=== PATIENT | male | born 1985 | race Caucasian/White ===

== ENCOUNTER 2017-07-23 20:01 | Inpatient (IN) | payer MEDICAID, OTHER ==
[~2017-07-23] VITALS: Ht 177.8 cm; Wt 68.2 kg
[2017-07-23 20:44] VITALS: BP 125/82; PULSE 73; RESP 16; TEMP 97.4; O2SAT 98
[2017-07-23 23:21] VITALS: BP 131/85; PULSE 70; RESP 18; O2SAT 100
[2017-07-23] MEDS ORDERED: SERO200T PO (23:30)
[2017-07-23] MEDS ORDERED: VENL75TA2 PO (23:30)
[2017-07-23] MEDS ORDERED: SERO300T PO (23:30)
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
[2017-07-23] MEDS ORDERED: DIPHTH/TETANUS/ACEL PERTUSSIS (BOOSTER) 0.5 ML VIAL/PFS IM ONE (23:45)
[2017-07-23] MEDS ORDERED: SILVER SULFADIAZINE 1% CR 400 GM JAR TOPICAL ONE (23:45)
[2017-07-24 00:33] LABS: BASOPHIL # 0.1 TH/MM3 (0-0.2); BASOPHIL % 0.6 % (0.0-2.0); EOSINOPHIL # 0.7 TH/MM3 (0-0.4); EOSINOPHIL % 6.8 % (0.0-4.0); HEMO FLAGS DIFF FINAL; LYMPH % 35.8 % (9.0-44.0); LYMPHOCYTE # 3.6 TH/MM3 (1.0-4.8); MEAN CELL VOLUME 94.9 FL (80.0-100.0); MEAN CORPUSCULAR HEMOGLOBIN 32.4 PG (27.0-34.0); MEAN CORPUSCULAR HGB CONC 34.2 % (32.0-36.0); MONO % 7.2 % (0.0-8.0); NEUT % 49.6 % (16.0-70.0); PLATELET COUNT 324 TH/MM3 (150-450); RED BLOOD COUNT 4.33 MIL/MM3 (4.50-5.90); RED CELL DISTRIBUTION WIDTH 13.3 % (11.6-17.2); WHITE BLOOD COUNT 10.1 TH/MM3 (4.0-11.0)
[2017-07-24 00:49] LABS: ANION GAP 7 MEQ/L (5-15); AST (GOT) 11 U/L (15-37); BICARBONATE 29.1 MEQ/L (21.0-32.0); BLOOD UREA NITROGEN 11 MG/DL (7-18); CHLORIDE 105 MEQ/L (98-107); GLOMERULAR FILTRATION RATE 98 ML/MIN (>89); POTASSIUM 3.4 MEQ/L (3.5-5.1); SODIUM (NA) 141 MEQ/L (136-145)
[2017-07-24 01:00] LABS: ACETAMINOPHEN LESS THAN 2.0 MCG/ML (10.0-30.0); ALKALINE PHOSPHATASE 107 U/L (45-117); ALT (GPT) 19 U/L (12-78); TOTAL BILIRUBIN ADULT 0.2 MG/DL (0.2-1.0)
[2017-07-24 01:09] LABS: ALCOHOL LESS THAN 3 MG/DL (0-5)
[2017-07-24] MEDS ORDERED: POTASSIUM CHLORIDE 20 MEQ CONTROLLED RELEASE TAB PO ONE (01:45)
[2017-07-24 04:10] VITALS: BP 104/58; PULSE 82; RESP 16; TEMP 98.2; O2SAT 95
[2017-07-24 10:27] VITALS: BP 134/84; PULSE 77; RESP 16; O2SAT 97
[2017-07-24 11:30] VITALS: BP 109/69; PULSE 66; RESP 16; TEMP 98.2
[2017-07-24 14:59] VITALS: BP 129/67; PULSE 75; RESP 18; O2SAT 98
[2017-07-24 18:46] VITALS: BP 140/86; PULSE 76; RESP 18; O2SAT 99
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
[2017-07-24] MEDS ORDERED: ALUMINUM/MAGNESIUM/SIMETH 30 ML CUP PO PRN (20:45)
[2017-07-24] MEDS ORDERED: MAGNESIUM HYDROXIDE SUSP 30 ML CUP PO PRN (20:45)
[2017-07-24] MEDS ORDERED: ACETAMINOPHEN 325 MG TAB PO PRN (20:45)
[2017-07-24] MEDS: REMOVE OLD PATCH T-DERMAL SCH (21:00)
[2017-07-24] MEDS: QUEtiapine FUMARATE 300 MG TAB PO SCH (21:59)
[2017-07-25 05:34] VITALS: BP 101/65; PULSE 72; RESP 16; TEMP 97.9; O2SAT 96
[2017-07-25] MEDS: VENLAFAXINE HCL XR 75 MG CAP PO SCH (09:01)
[2017-07-25] MEDS: NICOTINE 21 MG/24 HR PATCH T-DERMAL SCH (09:02)
[2017-07-25 11:06] LABS: ANION GAP 6 MEQ/L (5-15); BICARBONATE 28.8 MEQ/L (21.0-32.0); BLOOD UREA NITROGEN 12 MG/DL (7-18); CHLORIDE 106 MEQ/L (98-107); GLOMERULAR FILTRATION RATE 95 ML/MIN (>89); POTASSIUM 4.1 MEQ/L (3.5-5.1); SODIUM (NA) 141 MEQ/L (136-145)
[2017-07-25 11:17] LABS: HDL CHOLESTEROL 27.3 MG/DL (40.0-60.0); LDL CHOLESTEROL 102 MG/DL (0-99)
[2017-07-25] MEDS ORDERED: ACETAMINOPHEN 325 MG TAB PO PRN (11:45)
[2017-07-25] MEDS ORDERED: hydrOXYzine HCL 50 MG TAB PO PRN (12:00)
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
[2017-07-25] MEDS ORDERED: VENL75XR PO (12:34)
[2017-07-25] MEDS ORDERED: QUET1TAB10 PO (12:34)
[2017-07-25] MEDS ORDERED: QUET1TAB9 PO (12:34)
--- NOTE | 2017-07-25 14:41 | EKG ---
Date Performed: 07/25/2017 Time Performed: 07:53:49 PTAGE: 32 years EKG: Sinus rhythm WITH SINUS ARRHYTHMIA NORMAL ECG NO PREVIOUS TRACING DOCTOR: Jorge Braden Interpretating Date/Time 07/25/2017 14:36:57
[2017-07-25 16:57] LABS: HEMOGLOBIN A1a 0.9 %; HEMOGLOBIN A1b 0.8 %; HEMOGLOBIN Ao 86.5 %; HEMOGLOBIN LA1C 1.8 %; HEMOGLOBIN P3 3.4 %
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
[2017-07-25 18:20] VITALS: BP 113/68; PULSE 88; RESP 18; TEMP 97.6; O2SAT 98
[2017-07-25 20:26] VITALS: BP 101/65; PULSE 72; RESP 16; TEMP 97.9; O2SAT 96
[2017-07-25] MEDS: QUEtiapine FUMARATE 300 MG TAB PO SCH (20:40)
[2017-07-25] MEDS: REMOVE OLD PATCH T-DERMAL SCH (20:41)
[2017-07-25] MEDS ORDERED: diphenhydrAMINE HCL 50 MG CAP PO PRN (21:00)
[2017-07-26 05:58] VITALS: BP 115/72; PULSE 65; RESP 16; TEMP 97.8; O2SAT 98
[2017-07-26] MEDS: QUEtiapine FUMARATE 200 MG TAB PO SCH (08:21)
[2017-07-26] MEDS: VENLAFAXINE HCL XR 75 MG CAP PO SCH (08:21)
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
[2017-07-26] MEDS: NICOTINE 21 MG/24 HR PATCH T-DERMAL SCH (08:31)
[2017-07-26] MEDS ORDERED: NICOTINE 21 MG/24 HR PATCH T-DERMAL SCH (09:00)
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
[2017-07-26 18:08] VITALS: BP 121/78; PULSE 100; RESP 17; TEMP 97.4; O2SAT 98
[2017-07-26] MEDS: REMOVE OLD PATCH T-DERMAL SCH (21:00)
[2017-07-26] MEDS: QUEtiapine FUMARATE 300 MG TAB PO SCH (21:11)
[2017-07-27 06:04] VITALS: BP 108/56; PULSE 80; RESP 18; TEMP 97.9; O2SAT 95
[2017-07-27] MEDS: NICOTINE 21 MG/24 HR PATCH T-DERMAL SCH (09:37)
[2017-07-27] MEDS: QUEtiapine FUMARATE 200 MG TAB PO SCH (09:38)
[2017-07-27] MEDS: VENLAFAXINE HCL XR 75 MG CAP PO SCH (09:41)
--- NOTE | 2017-07-27 14:16 | HHI.PYPN ---
Subjective Remarks Pt seen and discussed with staff. He has been writing disorganized rants "If god let a man that is not attracted to a man be sexual with a man then he is a piece of shit.God licks my balls and sucks my ashley". He is compliant with medications and denies medications side effects. NO aggression. Chief Complaint: admitted forthreatening auditory hallucinations self- mutilation Mental Status Examination Appearance: Appropriate Consciousness: Alert Orientation: x4 Motor Activity: Normal gait Speech: Unremarkable Language: Adequate Fund of Knowledge: Adequate Attention and Concentration: Adequate Memory: Unremarkable Mood: Appropriate Affect: Appropriate Thought Process & Associations: Intact, Disorganized (mild), Other Thought Content: Bizarre thinking Hallucination Type: Auditory Delusion Type: None Suicidal Ideation: No Suicidal Plan: No Suicidal Intention: No Homicidal Ideation: No Homicidal Plan: No Homicidal Intention: No Insight: Poor Judgment: Poor Results Labs Test 07/27/17 08:05 Erythrocyte Sedimentation Rate 7 mm/hr C-Reactive Protein 0.66 MG/DL Vitamin B12 Level 224 PG/ML Vitals/IOs Vital Signs Date Time Temp Pulse Resp B/P (MAP) Pulse Ox O2 Delivery O2 Flow Rate FiO2 07/27/17 06:04 97.9 80 18 108/56 (73) 95 07/24/17 18:46 Room Air Assessment & Plan Problem List: (1) Schizoaffective disorder ICD Codes: F25.9 - Schizoaffective disorder, unspecified Status: Acute Assessment & Plan continue current tx planEstimated LOS: days Justification for Cont. Inpt. impairments in reality testing Problem Qualifiers (1) Schizoaffective disorder: Qualified Codes: F25.0 - Schizoaffective disorder, bipolar type Anna Collado MD Jul 27, 2017 14:16
[2017-07-27 18:09] VITALS: BP 116/58; PULSE 107; RESP 18; TEMP 97.7; O2SAT 98
[2017-07-27] MEDS: REMOVE OLD PATCH T-DERMAL SCH (21:00)
[2017-07-27] MEDS: QUEtiapine FUMARATE 300 MG TAB PO SCH (22:24)
--- NOTE | 2017-07-27 22:48 | MG ---
cc: ANAND VILLARREAL MD Lab No: [id number] Date: 07/27/17 Age: 41 Sex: M Race: 1985 A 32-year-old, hallucinations, of previous potential seizures. Posterior rhythm demonstrates well-formed alpha activity 8-10 Hz 20-40 microvolts, low amplitude beta in the frontal channels. Good anterior-posterior gradient. Good EEG variability reactivity. Movement artifact occurring and blinking. Hyperventilation performed with good buildup. Single lead EKG showing sinus rhythm. INTERPRETATION Essentially normal awake EEG without the presence of any epileptic activity. Clinical correlation. MD DANIEL Villegas/ /9:47 PM /10:40 PM
[2017-07-28 05:30] VITALS: BP 90/55; PULSE 72; RESP 16; TEMP 97.9; O2SAT 96
[2017-07-28] MEDS: QUEtiapine FUMARATE 200 MG TAB PO SCH (08:52)
[2017-07-28] MEDS: VENLAFAXINE HCL XR 75 MG CAP PO SCH (08:52)
[2017-07-28] MEDS: NICOTINE 21 MG/24 HR PATCH T-DERMAL SCH (08:53)
--- NOTE | 2017-07-28 12:29 | RADRPT ---
EXAM DATE/TIME: 07/28/2017 11:43 [facility] COMPARISON: No previous studies available for comparison. INDICATIONS : Seizures. MEDICAL HISTORY : Seizures. SURGICAL HISTORY : Orthopedic. ENCOUNTER: Initial ACUITY: 1 day PAIN SCORE: 0/10 LOCATION: cranial TECHNIQUE: Multiplanar, multisequence MRI of the brain was performed without contrast. FINDINGS: CEREBRUM: The ventricles are normal for age. No evidence of midline shift, mass lesion, hemorrhage or acute in farction. No extraaxial fluid collections are seen. The pituitary gland and suprasellar cistern are normal in configuration. The hippocampal gyri appear symmetric in size and signal intensity bilatera lly. WHITE MATTER: No significant signal abnormalities are seen in the white matter. POSTERIOR FOSSA: The cerebellum and brainstem are intact. The 4th ventricle is midline. The cerebellopontine angle is unremarkable. The cerebellar tonsils are normal in position. DIFFUSION IMAGING: No focal areas of restricted diffusion are seen. No evidence of acute infarction. EXTRACRANIAL: The visualized portions of the orbits are intact. There is extensive mucoperiosteal thickening involv ing the right maxillary sinus suggesting right maxillary sinusitis. CONCLUSION: 1. No acute intracranial abnormality. 2. Right maxillary sinusitis. Gabino Murdock MD on July 28, 2017 at 12:25 Board Certified Radiologist. This report was verified electronically.
--- NOTE | 2017-07-28 13:54 | HHI.PYPN ---
Subjective Remarks Pt seen and discussed with staff. Pt refused breakfast today because "of the people" and could not elaborate beyond that. He did eat lunch. He remains disorganized and paranoid.He continues to respond to internal stimuli and was observed by RN having animated conversations with unseen entities. No aggression or behavioral problems on unit. He has come out his room more today. He is compliant iw medications and denies SI/HI Chief Complaint: admitted due to threatening auditory hallucinations self- mutilation Mental Status Examination Appearance: Appropriate Consciousness: Alert Orientation: x4 Motor Activity: Normal gait Speech: Unremarkable Language: Adequate Fund of Knowledge: Adequate Attention and Concentration: Adequate Memory: Unremarkable Mood: Appropriate Affect: Appropriate Thought Process & Associations: Intact, Disorganized (mild), Other Thought Content: Bizarre thinking Hallucination Type: Auditory Delusion Type: None Suicidal Ideation: No Suicidal Plan: No Suicidal Intention: No Homicidal Ideation: No Homicidal Plan: No Homicidal Intention: No Insight: Poor Judgment: Poor Results Vitals/IOs Vital Signs Date Time Temp Pulse Resp B/P (MAP) Pulse Ox O2 Delivery O2 Flow Rate FiO2 07/28/17 05:30 97.9 72 16 90/55 (67) 96 07/24/17 18:46 Room Air Assessment & Plan Problem List: (1) Schizoaffective disorder ICD Codes: F25.9 - Schizoaffective disorder, unspecified Status: Acute Assessment & Plan Continue current tx plan., Estimated LOS: days Justification for Cont. Inpt. impairments in reality testing Problem Qualifiers (1) Schizoaffective disorder: Qualified Codes: F25.0 - Schizoaffective disorder, bipolar type Anna Collado MD Jul 28, 2017 13:54
--- NOTE | 2017-07-28 15:25 | HHI.PR ---
Review/Management Diagnosis/Plan: (1) Seizure cerebral ICD Codes: I67.89 - Other cerebrovascular disease Status: Chronic Plan: limited hx from the pt his eeg from 2011 was quite abnormal and suggestive of a lower tendency for sz recs eeg- no sz activity, looked nml mr brain- edwin nml; denies symptoms of sinusitis. no nasal congestion/discharge/ fever or maxillary tenderness no further recs (2) Schizoaffective disorder ICD Codes: F25.9 - Schizoaffective disorder, unspecified Status: Acute (3) Auditory hallucinations ICD Codes: R44.0 - Auditory hallucinations Status: Acute Subjective Subjective Comments No acute events reported No headache No chest pain No dyspnea Active Medications Current Medications Medications (Trade) Dose Ordered Sig/Mikhail Route Start Time Stop Time Status Last Admin (Tylenol) 650 mg Q4H PRN PO 07/24/17 20:45 (Milk Of Magnesia Liq) 30 ml DAILY PRN PO 07/24/17 20:45 (Mag-Al Plus Susp Liq) 30 ml Q6H PRN PO 07/24/17 20:45 (Habitrol 21 Mg Patch.24 Hr) 1 patch DAILY T-DERMAL 07/25/17 09:00 07/28/17 08:53 Miscellaneous Information 1 HS T-DERMAL 07/24/17 21:00 07/27/17 21:00 (SEROquel) 300 mg HS PO 07/24/17 21:00 07/27/17 22:24 (Effexor Xr) 75 mg DAILY PO 07/25/17 09:00 07/28/17 08:52 (Benadryl) 50 mg HS PRN PO 07/25/17 21:00 (Atarax) 50 mg Q6HR PRN PO 07/25/17 12:00 (SEROquel) 200 mg DAILY PO 07/26/17 09:00 07/28/17 08:52 Allergies Allergies Coded Allergies Penicillins (Verified Allergy, Unknown, 07/23/17) Review of Systems All other ROS: ROS reviewed as documented in chart Exam I&O / VS Vital Signs Date Time Temp Pulse Resp B/P (MAP) Pulse Ox O2 Delivery O2 Flow Rate FiO2 07/28/17 05:30 97.9 72 16 90/55 (67) 96 07/27/17 18:09 97.7 107 18 116/58 (77) 98 General: Alert and Oriented, No acute distress Eye: EOMI Respiratory: Non-labored respirations Neurologic: Alert, Oriented, Normal sensory, Normal motor, No focal defects, CN II-XII intact Psychiatric: Cooperative, Appropriate mood & affect Exam Comments ox 3, calm, better eye contact, was coloring pictures, follows, pres Trump, rest non-focal Problem Qualifiers (1) Schizoaffective disorder: Qualified Codes: F25.0 - Schizoaffective disorder, bipolar type Hayden Pelayo MD Jul 28, 2017 15:25
[2017-07-28 16:42] VITALS: BP 124/71; PULSE 89; RESP 18; TEMP 98.3; O2SAT 99
[2017-07-28] MEDS: REMOVE OLD PATCH T-DERMAL SCH (20:50)
[2017-07-28] MEDS: QUEtiapine FUMARATE 300 MG TAB PO SCH (20:50)
[2017-07-29 06:27] VITALS: BP 98/60; PULSE 85; RESP 18; TEMP 97.7; O2SAT 97
[2017-07-29] MEDS: VENLAFAXINE HCL XR 75 MG CAP PO SCH (08:40)
[2017-07-29] MEDS: QUEtiapine FUMARATE 200 MG TAB PO SCH (08:40)
[2017-07-29] MEDS: NICOTINE 21 MG/24 HR PATCH T-DERMAL SCH (08:41)
--- NOTE | 2017-07-29 10:51 | HHI.PYPN ---
Subjective Remarks Patient seen in his room with nurse Gigi and medical student kasia , chart review patient compliant medication. Staff states she is somewhat more irritable recently with his hoarding of papers. Was somewhat irritated that his wastebasket was emptied. He remains diffusely confused. Continues to focus on his with ship with the [employer] Chief Complaint: admitted due to threatening auditory hallucinations self- mutilation Review of Systems Except as stated in HPI: all other systems reviewed are Neg Mental Status Examination Appearance: Appropriate Consciousness: Alert Orientation: x4 Motor Activity: Normal gait Speech: Unremarkable Language: Adequate Fund of Knowledge: Adequate Attention and Concentration: Adequate Memory: Unremarkable Mood: Appropriate Affect: Appropriate Thought Process & Associations: Intact, Disorganized (mild), Other Thought Content: Bizarre thinking Hallucination Type: Auditory Delusion Type: None Suicidal Ideation: No Suicidal Plan: No Suicidal Intention: No Homicidal Ideation: No Homicidal Plan: No Homicidal Intention: No Insight: Poor Judgment: Poor Results Vitals/IOs Vital Signs Date Time Temp Pulse Resp B/P (MAP) Pulse Ox O2 Delivery O2 Flow Rate FiO2 07/29/17 06:27 97.7 85 18 98/60 (73) 97 Assessment & Plan Problem List: (1) Schizoaffective disorder ICD Codes: F25.9 - Schizoaffective disorder, unspecified Status: Acute Assessment & Plan Estimated LOS: days patient continues delusional psychotic somewhat irritable. Compliant medications. Justification for Cont. Inpt. At this time patient will decompensate if placed on lower level of care Discharge Planning Placement remains quite problematic considering patient's past placement failures Problem Qualifiers (1) Schizoaffective disorder: Qualified Codes: F25.0 - Schizoaffective disorder, bipolar type Loy Corbett MD Jul 29, 2017 10:51
--- NOTE | 2017-07-29 12:37 | HHI.PYPN ---
Subjective Remarks Seen in his room with nurse Kerry and medical student kasia, patient chart review compliant medication. Patient tolerating neurology workup without difficulty so far no significant findings noted. Patient is some vague auditory hallucinations that are persisting "bad thoughts". He denies suicidality. For now continue treatment Chief Complaint: admitted due to threatening auditory hallucinations self- mutilation Review of Systems Except as stated in HPI: all other systems reviewed are Neg Mental Status Examination Appearance: Appropriate Consciousness: Alert Orientation: x4 Motor Activity: Normal gait Speech: Unremarkable Language: Adequate Fund of Knowledge: Adequate Attention and Concentration: Adequate Memory: Unremarkable Mood: Appropriate Affect: Appropriate Thought Process & Associations: Intact, Disorganized (mild), Other Thought Content: Bizarre thinking Hallucination Type: Auditory Delusion Type: None Suicidal Ideation: No Suicidal Plan: No Suicidal Intention: No Homicidal Ideation: No Homicidal Plan: No Homicidal Intention: No Insight: Poor Judgment: Poor Results Vitals/IOs Vital Signs Date Time Temp Pulse Resp B/P (MAP) Pulse Ox O2 Delivery O2 Flow Rate FiO2 07/29/17 06:27 97.7 85 18 98/60 (73) 97 Assessment & Plan Problem List: (1) Schizoaffective disorder ICD Codes: F25.9 - Schizoaffective disorder, unspecified Status: Acute Assessment & Plan Estimated LOS: days patient continue psychotic though it is softening, neurology consult testing reviewed no significant changes noted with focus. For now continue treatment Justification for Cont. Inpt. At this time patient will decompensate if placed in a lower level of care Discharge Planning Plan is to return home with mother Problem Qualifiers (1) Schizoaffective disorder: Qualified Codes: F25.0 - Schizoaffective disorder, bipolar type Loy Corbett MD Jul 29, 2017 12:37
[2017-07-29 16:23] LABS: ANA SCREEN NEG (NEG)
[2017-07-29 18:00] VITALS: BP 120/70; PULSE 91; RESP 18; TEMP 97.9; O2SAT 97
[2017-07-29] MEDS: REMOVE OLD PATCH T-DERMAL SCH (21:00)
[2017-07-29] MEDS: QUEtiapine FUMARATE 300 MG TAB PO SCH (21:09)
[2017-07-30 05:50] VITALS: BP 116/60; PULSE 65; RESP 18; TEMP 97.7; O2SAT 97
[2017-07-30] MEDS: VENLAFAXINE HCL XR 75 MG CAP PO SCH (10:56)
[2017-07-30] MEDS: QUEtiapine FUMARATE 200 MG TAB PO SCH (10:57)
[2017-07-30] MEDS: NICOTINE 21 MG/24 HR PATCH T-DERMAL SCH (10:58)
[2017-07-30 18:30] VITALS: BP 139/69; PULSE 85; RESP 16; TEMP 98.2; O2SAT 100
[2017-07-30] MEDS: REMOVE OLD PATCH T-DERMAL SCH (21:00)
[2017-07-30] MEDS: QUEtiapine FUMARATE 300 MG TAB PO SCH (21:00)
[2017-07-31 05:55] VITALS: BP 111/58; PULSE 98; RESP 18; TEMP 98.1; O2SAT 98
[2017-07-31] MEDS: NICOTINE 21 MG/24 HR PATCH T-DERMAL SCH (08:32)
[2017-07-31] MEDS: VENLAFAXINE HCL XR 75 MG CAP PO SCH (08:33)
[2017-07-31] MEDS: QUEtiapine FUMARATE 200 MG TAB PO SCH (08:33)
--- NOTE | 2017-07-31 09:03 | HHI.PYPN ---
Subjective Remarks This is a late note dictated on this patient for 07/30/17. Patient seen by me on that date patient seen with RN and medical studentkasia. Chart reviewed patient compliant medications patient calm cooperative with me, did acknowledge continued "bad thoughts" he does denies suicidality homicidality at the present time. He is compliant with his medications. Chief Complaint: admitted due to threatening auditory hallucinations self- mutilation Review of Systems Except as stated in HPI: all other systems reviewed are Neg Mental Status Examination Appearance: Appropriate Consciousness: Alert Orientation: x4 Motor Activity: Normal gait Speech: Unremarkable Language: Adequate Fund of Knowledge: Adequate Attention and Concentration: Adequate Memory: Unremarkable Mood: Appropriate Affect: Appropriate Thought Process & Associations: Intact, Disorganized (mild), Other Thought Content: Bizarre thinking Hallucination Type: Auditory Delusion Type: None Suicidal Ideation: No Suicidal Plan: No Suicidal Intention: No Homicidal Ideation: No Homicidal Plan: No Homicidal Intention: No Insight: Poor Judgment: Poor Results Vitals/IOs Vital Signs Date Time Temp Pulse Resp B/P (MAP) Pulse Ox O2 Delivery O2 Flow Rate FiO2 07/31/17 05:55 98.1 98 18 111/58 (75) 98 Assessment & Plan Problem List: (1) Schizoaffective disorder ICD Codes: F25.9 - Schizoaffective disorder, unspecified Status: Acute Assessment & Plan Estimated LOS: days patient continues somewhat psychotic delusional though no behavioral problems, compliant with medication for now continue treatment Justification for Cont. Inpt. At this time patient will decompensate in place to lower level of care Discharge Planning Patient remains somewhat problematic need to get further conversation with family Problem Qualifiers (1) Schizoaffective disorder: Qualified Codes: F25.0 - Schizoaffective disorder, bipolar type Loy Corbett MD Jul 31, 2017 09:03
--- NOTE | 2017-07-31 14:14 | HHI.PYPN ---
Subjective Remarks Patient seen in day room with the floor staff, chart reviewed, patient compliant medicine. Patient calm cooperative with me states the "bad thoughts" continue to fade away. His compliant with medication. Denies suicidality homicidality. At this time I feel patient does have the capacity to sign voluntary. Patient scheduled for [place] [facility] tomorrow. Will lift Mata act allow the patient to sign voluntary Chief Complaint: admitted due to threatening auditory hallucinations self- mutilation Review of Systems Except as stated in HPI: all other systems reviewed are Neg Mental Status Examination Appearance: Appropriate Consciousness: Alert Orientation: x4 Motor Activity: Normal gait Speech: Unremarkable Language: Adequate Fund of Knowledge: Adequate Attention and Concentration: Adequate Memory: Unremarkable Mood: Appropriate Affect: Appropriate Thought Process & Associations: Intact, Disorganized (mild), Other Thought Content: Bizarre thinking Hallucination Type: Auditory Delusion Type: None Suicidal Ideation: No Suicidal Plan: No Suicidal Intention: No Homicidal Ideation: No Homicidal Plan: No Homicidal Intention: No Insight: Poor Judgment: Poor Results Vitals/IOs Vital Signs Date Time Temp Pulse Resp B/P (MAP) Pulse Ox O2 Delivery O2 Flow Rate FiO2 07/31/17 05:55 98.1 98 18 111/58 (75) 98 Assessment & Plan Problem List: (1) Schizoaffective disorder ICD Codes: F25.9 - Schizoaffective disorder, unspecified Status: Acute Assessment & Plan Estimated LOS: days patient psychosis continues to slowly resolve the "bad thoughts" "resolving will lift [place] act allow the patient is sign voluntary Justification for Cont. Inpt. At this time patient will decompensate if place to the lower level of care Discharge Planning Patient anticipated to return home with family once further stabilized Problem Qualifiers (1) Schizoaffective disorder: Qualified Codes: F25.0 - Schizoaffective disorder, bipolar type Loy Corbett MD Jul 31, 2017 14:14
[2017-07-31 18:00] VITALS: BP 124/78; PULSE 89; RESP 18; TEMP 98; O2SAT 95
[2017-07-31] MEDS: QUEtiapine FUMARATE 300 MG TAB PO SCH (20:58)
[2017-07-31] MEDS: REMOVE OLD PATCH T-DERMAL SCH (20:59)
[2017-08-01 05:11] VITALS: BP 101/67; PULSE 58; RESP 16; TEMP 97.7; O2SAT 98
[2017-08-01] MEDS: VENLAFAXINE HCL XR 75 MG CAP PO SCH (08:35)
[2017-08-01] MEDS: QUEtiapine FUMARATE 200 MG TAB PO SCH (08:35)
[2017-08-01] MEDS: NICOTINE 21 MG/24 HR PATCH T-DERMAL SCH (08:36)
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
[2017-08-01 17:44] VITALS: BP 116/63; PULSE 81; RESP 17; TEMP 97.5; O2SAT 98
[2017-08-01] MEDS: QUEtiapine FUMARATE 300 MG TAB PO SCH (20:45)
[2017-08-01] MEDS: REMOVE OLD PATCH T-DERMAL SCH (21:00)
[2017-08-02 05:36] VITALS: BP 110/66; PULSE 72; RESP 16; TEMP 97.6; O2SAT 97
[2017-08-02] MEDS: VENLAFAXINE HCL XR 75 MG CAP PO SCH (08:21)
[2017-08-02] MEDS: QUEtiapine FUMARATE 200 MG TAB PO SCH (08:21)
[2017-08-02] MEDS: NICOTINE 21 MG/24 HR PATCH T-DERMAL SCH (08:21)
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
== END 2017-08-02 13:55 | disposition home or self-care (01) | DRG 880 ==
LOC: NEDAMB 20:01 → NEDA 07-24 20:47 → H260 07-24 22:17
PROVIDERS: ADMIT Psychiatry & Neurology Psychiatry; ATTEND Psychiatry & Neurology Psychiatry
DX: R45.851 Suicidal ideations (principal); T31.0 Burns involving less than 10% of body surface; T22.212A Burn of second degree of left forearm, initial encounter; X08.8XXA Exposure to other specified smoke, fire and flames, initial encounter; Z23 Encounter for immunization; F25.0 Schizoaffective disorder, bipolar type; F17.210 Nicotine dependence, cigarettes, uncomplicated; E78.5 Hyperlipidemia, unspecified
CPT/HCPCS: 70551; 80048; 80053; 80061; 80307; 82607; 83036; 84443; 85025; 85652; 86038; 86140; 86592; 90471; 90715; 93005; 95819